=== PATIENT | male | born 1990 | race Caucasian/White ===

== ENCOUNTER → 2016-05-26 | Outpatient (CLI) | payer OTHER ==
[2016-05-30 22:15] LABS: AMOXICILLIN CLASS 0; AMOXICILLIN IGE <0.10 kU/L
== END | disposition home or self-care (01) ==
LOC: C.LAB1850 11:30
PROVIDERS: ATTEND Internal Medicine Pulmonary Disease
DX: J30.9 Allergic rhinitis, unspecified (principal)